=== PATIENT | female | born 1995 | race Two or more races ===

== ENCOUNTER 2017-05-18 11:35 | Emergency (ER) | payer OTHER ==
[~2017-05-18] VITALS: Ht 149.9 cm; Wt 53.5 kg
[~2017-05-18 11:35] MED LIST: AMOX1TAB12 PO; BACTRIM DS TABL1 TAB PO; DICY10CA PO; KETO10TA2 PO; MEDROLPACK PO; MUCINEX1200 MG PO; NEXIUM10 MG PO; PROTONIX40 MG; ZANTAC 7575 MG PO; ZANTAC150 M3 PO; ZANTAC150 MG PO
== END 2017-05-18 16:12 | disposition home or self-care (01) ==
LOC: ER 11:35
DX: B34.9 Viral infection, unspecified (principal)

== ENCOUNTER 2018-06-08 23:30 | Emergency (ER) | payer OTHER ==
[~2018-06-08] VITALS: Ht 149.9 cm; Wt 54.4 kg
[2018-06-09] MEDS ORDERED: MACROBID 100 M100 MG PO (04:30)
== END 2018-06-09 04:44 | disposition home or self-care (01) ==
LOC: ER 23:30
DX: N39.0 Urinary tract infection, site not specified (principal); R10.31 Right lower quadrant pain

== ENCOUNTER → 2018-08-24 | Outpatient (CLI) | payer OTHER ==
[~2018-08-24] MED LIST changes: +MACROBID 100 M100 MG PO
== END | disposition home or self-care (01) ==
LOC: PRENATAL 08:00
DX: O28.3 Abnormal ultrasonic finding on antenatal screening of mother (principal); Z36 Encounter for antenatal screening of mother

== ENCOUNTER 2018-09-22 10:28 | Emergency (ER) | payer OTHER ==
[~2018-09-22] VITALS: Ht 149.9 cm; Wt 69.9 kg
== END 2018-09-22 14:13 | disposition home or self-care (01) ==
LOC: ER 10:28
DX: O26.892 Other specified pregnancy related conditions, second trimester (principal); J22 Unspecified acute lower respiratory infection; Z34.02 Encounter for supervision of normal first pregnancy, second trimester

== ENCOUNTER → 2018-09-22 | Emergency (ER) | payer OTHER ==
[~2018-09-22] VITALS: Ht 149.9 cm; Wt 69.9 kg
== END | disposition left against medical advice (07) ==
LOC: ER 07:24
DX: Z53.20 Procedure and treatment not carried out because of patient's decision for unspecified reasons (principal)

== ENCOUNTER 2019-01-03 15:00 | Inpatient (IN) | payer OTHER ==
[~2019-01-03] VITALS: Ht 149.9 cm; Wt 81.6 kg
[2019-01-21] MEDS ORDERED: MAXFE CAPLET1 EACH PO (13:44)
[2019-01-21] MEDS ORDERED: ACETAMINOPHEN325 M1 PO (13:44)
== END 2019-01-21 16:31 | disposition home or self-care (01) | DRG 807 ==
LOC: OB/GYN 01-18 15:00 → LDR 01-19 05:15 → OB/GYN 01-19 14:58
PROVIDERS: ADMIT Specialist
PROC: 10E0XZZ Delivery of Products of Conception, External Approach (ICD-10-PCS; principal; 2019-01-19)
PROC: 0W8NXZZ Division of Female Perineum, External Approach (ICD-10-PCS; 2019-01-19)
PROC: 4A1HXCZ Monitoring of Products of Conception, Cardiac Rate, External Approach (ICD-10-PCS; 2019-01-19)
DX: O80 Encounter for full-term uncomplicated delivery (principal); Z37.0 Single live birth; Z3A.40 40 weeks gestation of pregnancy

== ENCOUNTER 2019-01-14 01:14 | Outpatient (CLI) | payer OTHER | END 2019-01-14 10:35 | disposition home or self-care (01) | LOC: OBS/DEL 01:14 | DX: O26.893 Other specified pregnancy related conditions, third trimester (principal); K52.89 Other specified noninfective gastroenteritis and colitis ==

== ENCOUNTER 2020-07-09 13:20 | Emergency (ER) | payer OTHER ==
[~2020-07-09] VITALS: Ht 154.9 cm; Wt 59.4 kg
[~2020-07-09 13:20] MED LIST changes: +ACETAMINOPHEN325 M1 PO; +MAXFE CAPLET1 EACH PO
[2020-07-09] MEDS ORDERED: LEVOFLOXACIN750 MG PO (15:54)
[2020-07-09] MEDS ORDERED: IBU600 MG PO (15:54)
== END 2020-07-09 16:00 | disposition home or self-care (01) ==
LOC: ER 13:20
DX: J35.01 Chronic tonsillitis (principal)

== ENCOUNTER 2022-08-13 12:03 | Emergency (ER) | payer OTHER ==
[~2022-08-13] VITALS: Ht 149.9 cm; Wt 65.3 kg
[~2022-08-13 12:03] MED LIST changes: +IBU600 MG PO; +LEVOFLOXACIN750 MG PO
== END 2022-08-13 15:11 | disposition left against medical advice (07) ==
LOC: ER 12:03
DX: O20.8 Other hemorrhage in early pregnancy (principal); Z3A.01 Less than 8 weeks gestation of pregnancy; Z88.8 Allergy status to other drugs, medicaments and biological substances

== ENCOUNTER 2022-08-22 14:43 | Emergency (ER) | payer OTHER ==
[~2022-08-22] VITALS: Ht 149.9 cm; Wt 66.2 kg
== END 2022-08-22 20:09 | disposition home or self-care (01) ==
LOC: ER 14:43
DX: K29.00 Acute gastritis without bleeding (principal); Z88.8 Allergy status to other drugs, medicaments and biological substances

== ENCOUNTER 2023-01-04 14:23 | Inpatient (IN) | payer OTHER ==
[~2023-01-04] VITALS: Ht 149.9 cm; Wt 55.8 kg
[2023-01-04 16:44] LABS: PH,URINE 6.5 (5.0-8.0); URINE APPEARANCE Clear; URINE BILIRRUBIN Negative (NEGATIVE); URINE BLOOD Small; URINE COLOR Yellow; URINE GLUCOSE Negative (NEGATIVE); URINE LEUKOCYTE Negative; URINE NITRATE Negative; URINE PROTEIN Negative (NEGATIVE)
[2023-01-04 16:47] LABS: HEMATOCRIT 37.3 % (36.0-45.00); HEMOGLOBIN 12.6 g/dL (12.0-15.00); MEAN CELL VOLUME 84.2 fL (80.00-100.00); MEAN CORPUSCULAR HEMOGLOBIN 28.5 pg (27.00-32.0); MEAN CORPUSCULAR HGB CONC 33.9 g/dl (32.0-36.0); PLATELET COUNT 283 K/uL (150-450); RED BLOOD COUNT 4.43 M/uL (4.00-6.00)
[2023-01-04 16:48] LABS: URINE EPITHELIAL CELLS 53.3 uL (0.0-38.8)
[2023-01-04 17:10] LABS: URINE RBC 1.7 uL (0.0-20.8)
[2023-01-04 17:26] LABS: ALBUMIN 3.7 gm/dL (3.4-5.0); BILIRUBIN TOTAL 0.58 mg/dL (0.3-1.2); CALCIUM 8.5 mg/dL (8.5-10.1); CREATININE SERUM 0.56 mg/dL (0.55-1.02); GFR 131.9; POTASSIUM 3.59 mEq/L (3.5-5.1); TOTAL PROTEIN 7.7 gm/dL (6.4-8.2)
[2023-01-04 23:59] LABS: PARTIAL THROMBOPLASTIN TIME 27.6 SECONDS (22.0-34.0); PROTHROMBIN TIME 10.5 SECONDS (9.0-11.5)
== END 2023-01-06 10:02 | disposition home or self-care (01) | DRG 770 ==
LOC: ER 14:23 → OB/GYN 20:40
PROVIDERS: General Practice; ADMIT Specialist; ATTEND Specialist
PROC: BU4CZZZ Ultrasonography of Uterus and Ovaries (ICD-10-PCS; 2023-01-04)
PROC: 10D17ZZ Extraction of Products of Conception, Retained, Via Natural or Artificial Opening (ICD-10-PCS; principal; 2023-01-05 16:30)
DX: O02.1 Missed abortion (principal); Z3A.09 9 weeks gestation of pregnancy; Z20.822 Contact with and (suspected) exposure to COVID-19

== ENCOUNTER 2023-03-07 00:51 | Emergency (ER) | payer OTHER ==
[~2023-03-07] VITALS: Ht 152.4 cm; Wt 64.9 kg
[2023-03-07 02:34] LABS: HEMATOCRIT 33.7 % (36.0-45.00); HEMOGLOBIN 11.4 g/dL (12.0-15.00); MEAN CELL VOLUME 83.5 fL (80.00-100.00); MEAN CORPUSCULAR HEMOGLOBIN 28.2 pg (27.00-32.0); MEAN CORPUSCULAR HGB CONC 33.8 g/dl (32.0-36.0); PLATELET COUNT 227 K/uL (150-450); RED BLOOD COUNT 4.03 M/uL (4.00-6.00); RED CELL DISTRIBUTION WIDTH 13.7 % (11.5-14.5)
== END 2023-03-07 03:41 | disposition home or self-care (01) ==
LOC: ER 00:52
DX: K52.89 Other specified noninfective gastroenteritis and colitis (principal); Z88.1 Allergy status to other antibiotic agents

== ENCOUNTER 2023-04-25 14:27 | Emergency (ER) | payer OTHER ==
[~2023-04-25] VITALS: Ht 149.9 cm; Wt 62.6 kg
== END 2023-04-25 16:28 | disposition home or self-care (01) ==
LOC: ER 14:27
DX: H10.89 Other conjunctivitis (principal); Z88.8 Allergy status to other drugs, medicaments and biological substances

== ENCOUNTER 2023-10-04 00:03 | Emergency (ER) | payer OTHER ==
[~2023-10-04] VITALS: Ht 149.9 cm; Wt 66.2 kg
[2023-10-04] MEDS ORDERED: ACETAMINOPHEN 500 MG GEL..CAP PO STA (01:28)
[2023-10-04] MEDS ORDERED: ACETAMINOPHEN 500 MG GEL..CAP PO ONE (01:30)
[2023-10-04 02:31] LABS: HEMATOCRIT 34.8 % (36.0-45.00); HEMOGLOBIN 11.7 g/dL (12.0-15.00); MEAN CELL VOLUME 85.8 fL (80.00-100.00); MEAN CORPUSCULAR HEMOGLOBIN 28.8 pg (27.00-32.0); MEAN CORPUSCULAR HGB CONC 33.5 g/dl (32.0-36.0); PLATELET COUNT 249 K/uL (150-450); RED BLOOD COUNT 4.06 M/uL (4.00-6.00); RED CELL DISTRIBUTION WIDTH 13.2 % (11.5-14.5)
[2023-10-04 02:32] LABS: PH,URINE 6.5 (5.0-8.0); URINE APPEARANCE Clear; URINE BILIRRUBIN Negative (NEGATIVE); URINE BLOOD Negative; URINE COLOR Yellow; URINE GLUCOSE Negative (NEGATIVE); URINE LEUKOCYTE Small; URINE NITRATE Negative; URINE PROTEIN Negative (NEGATIVE)
[2023-10-04 02:35] LABS: URINE BACTERIA 2296.9 uL (0.0-1933); URINE EPITHELIAL CELLS 67.9 uL (0.0-38.8); URINE RBC 6.2 uL (0.0-20.8); URINE WBC 39.2 uL (0.0-23.2)
== END 2023-10-04 04:57 | disposition home or self-care (01) ==
LOC: ER 00:04
PROVIDERS: General Practice
DX: O23.41 Unspecified infection of urinary tract in pregnancy, first trimester (principal); Z3A.01 Less than 8 weeks gestation of pregnancy; R10.9 Unspecified abdominal pain; Z88.1 Allergy status to other antibiotic agents

== ENCOUNTER 2023-11-23 15:41 | Emergency (ER) | payer OTHER ==
[~2023-11-23] VITALS: Ht 149.9 cm; Wt 66.2 kg
[2023-11-23] MEDS ORDERED: PRENATABS RX T1 EACH (16:08)
[2023-11-23] MEDS ORDERED: ACETAMINOPHEN 500 MG GEL..CAP PO ONE (17:15)
[2023-11-23] MEDS ORDERED: FAMOTIDINE/PF 20 MG/2 ML VIAL IV ONE (17:15)
[2023-11-23 17:33] LABS: HEMOGLOBIN 11.4 g/dL (12.0-15.00); MEAN CELL VOLUME 86.8 fL (80.00-100.00); MEAN CORPUSCULAR HEMOGLOBIN 29.2 pg (27.00-32.0); MEAN CORPUSCULAR HGB CONC 33.6 g/dl (32.0-36.0); PLATELET COUNT 230 K/uL (150-450); RED BLOOD COUNT 3.92 M/uL (4.00-6.00); RED CELL DISTRIBUTION WIDTH 13.2 % (11.5-14.5)
[2023-11-23 18:03] LABS: ALBUMIN 3.1 gm/dL (3.4-5.0); BILIRUBIN TOTAL 0.26 mg/dL (0.3-1.2); CALCIUM 8.8 mg/dL (8.5-10.1); CREATININE SERUM 0.72 mg/dL (0.55-1.02); GFR 97.91; GLOBULINA 4.1 G/DL (2.4-3.5); POTASSIUM 3.74 mEq/L (3.5-5.1); TOTAL PROTEIN 7.2 gm/dL (6.4-8.2)
[2023-11-23] MEDS ORDERED: PEPCID AC20 MG PO (18:47)
== END 2023-11-23 21:15 | disposition home or self-care (01) ==
LOC: ER 15:41
PROVIDERS: Nurse Practitioner Family
DX: O26.892 Other specified pregnancy related conditions, second trimester (principal); Z3A.14 14 weeks gestation of pregnancy; R10.13 Epigastric pain; R10.11 Right upper quadrant pain; Z88.8 Allergy status to other drugs, medicaments and biological substances

== ENCOUNTER 2024-02-25 01:45 | Emergency (ER) | payer OTHER ==
[~2024-02-25] VITALS: Ht 149.9 cm; Wt 77.6 kg
[~2024-02-25 01:45] MED LIST changes: +PEPCID AC20 MG PO; +PRENATABS RX T1 EACH
[2024-02-25 01:58] VITALS: BP 103/65; O2SAT 98
[2024-02-25] MEDS ORDERED: BISMUTH SUBSALICYLATE 524 MG/30 ML BLIST.PACK PO STA (03:10)
[2024-02-25 03:48] LABS: HEMATOCRIT 32.6 % (36.0-45.00); HEMOGLOBIN 11.2 g/dL (12.0-15.00); MEAN CELL VOLUME 85.4 fL (80.00-100.00); MEAN CORPUSCULAR HEMOGLOBIN 29.4 pg (27.00-32.0); MEAN CORPUSCULAR HGB CONC 34.4 g/dl (32.0-36.0); PLATELET COUNT 194 K/uL (150-450); RED BLOOD COUNT 3.82 M/uL (4.00-6.00); RED CELL DISTRIBUTION WIDTH 13.5 % (11.5-14.5)
== END 2024-02-25 05:17 | disposition home or self-care (01) ==
LOC: ER 01:47
DX: J10.1 Influenza due to other identified influenza virus with other respiratory manifestations (principal); Z20.822 Contact with and (suspected) exposure to COVID-19; Z88.8 Allergy status to other drugs, medicaments and biological substances

== ENCOUNTER → 2024-04-06 08:59 | Outpatient (CLI) | payer OTHER | END | disposition home or self-care (01) | LOC: PRENATAL 08:59 | PROVIDERS: ATTEND Obstetrics & Gynecology Maternal & Fetal Medicine | DX: O44.00 Complete placenta previa NOS or without hemorrhage, unspecified trimester (principal); O36.8199 Decreased fetal movements, unspecified trimester, other fetus; Z3A.33 33 weeks gestation of pregnancy ==

== ENCOUNTER 2024-05-06 13:56 | Outpatient (CLI) | payer OTHER ==
[~2024-05-06] VITALS: Ht 149.9 cm; Wt 81.6 kg
[2024-05-06 13:40] VITALS: BP 107/68
[2024-05-06] MEDS ORDERED: AMPICILLIN SODIUM 2,000 MG VIAL IV ONE (14:15)
[2024-05-06] MEDS ORDERED: ACETAMINOPHEN 500 MG GEL..CAP PO ONE (14:20)
[2024-05-06] MEDS ORDERED: ACETAMINOPHEN 325 MG TABLET PO PRN (14:30)
[2024-05-06 14:37] LABS: PH,URINE 6.5 (5.0-8.0); URINE APPEARANCE Cloudy; URINE BILIRRUBIN Negative (NEGATIVE); URINE BLOOD Moderate; URINE COLOR Yellow; URINE GLUCOSE Negative (NEGATIVE); URINE LEUKOCYTE Trace; URINE NITRATE Negative; URINE PROTEIN Negative (NEGATIVE)
[2024-05-06 14:40] LABS: HEMATOCRIT 31.3 % (36.0-45.00); HEMOGLOBIN 10.6 g/dL (12.0-15.00); MEAN CELL VOLUME 84.1 fL (80.00-100.00); MEAN CORPUSCULAR HEMOGLOBIN 28.6 pg (27.00-32.0); PLATELET COUNT 149 K/uL (150-450); RED BLOOD COUNT 3.72 M/uL (4.00-6.00); RED CELL DISTRIBUTION WIDTH 14.3 % (11.5-14.5); URINE BACTERIA 2035.4 uL (0.0-1933); URINE EPITHELIAL CELLS 79.6 uL (0.0-38.8); URINE RBC 281.6 uL (0.0-20.8); URINE WBC 19.7 uL (0.0-23.2)
[2024-05-06 14:43] LABS: URINE CAST 0.58 uL (0.0-1.40); URINE KETONE 40 (NEGATIVE)
[2024-05-06] MEDS ORDERED: ACETAMINOPHEN 500 MG GEL..CAP PO PRN (14:45)
[2024-05-06] MEDS ORDERED: OSELTAMIVIR PHOSPHATE 75 MG CAPSULE PO ONE (14:49)
[2024-05-06 15:15] LABS: ALBUMIN 2.6 gm/dL (3.4-5.0); BILIRUBIN TOTAL 0.56 mg/dL (0.3-1.2); CALCIUM 8.5 mg/dL (8.5-10.1); CREATININE SERUM 0.41 mg/dL (0.55-1.02); GFR 186.09; GLOBULINA 3.8 G/DL (2.4-3.5); POTASSIUM 3.72 mEq/L (3.5-5.1); TOTAL PROTEIN 6.4 gm/dL (6.4-8.2)
[2024-05-06 15:25] VITALS: BP 113/64; O2SAT 100
[2024-05-06] MEDS ORDERED: AMPICILLIN SODIUM 1,000 MG VIAL IV SCH ×2 (16:00→20:00)
[2024-05-06] MEDS ORDERED: OSELTAMIVIR PHOSPHATE 75 MG CAPSULE PO SCH (17:00)
[2024-05-06 19:09] VITALS: BP 126/77; O2SAT 100
[2024-05-06 23:10] VITALS: BP 104/60
[2024-05-07 04:00] VITALS: BP 96/56
[2024-05-07] MEDS ORDERED: RINGERS SOLUTION,LACTATED 1,000 ML IV SCH (07:15)
[2024-05-07 07:18] VITALS: BP 105/58
[2024-05-07 07:20] VITALS: BP 110/62
[2024-05-07] MEDS ORDERED: OSELTAMIVIR PHO75 MG PO (09:22)
[2024-05-07 10:17] VITALS: BP 105/58
== END 2024-05-07 10:17 | disposition home or self-care (01) ==
LOC: OBS/DEL 13:56
PROVIDERS: ATTEND Specialist
DX: O26.893 Other specified pregnancy related conditions, third trimester (principal); J10.1 Influenza due to other identified influenza virus with other respiratory manifestations; Z3A.37 37 weeks gestation of pregnancy

== ENCOUNTER 2024-05-15 13:00 | Inpatient (IN) | payer OTHER ==
[~2024-05-15] VITALS: Ht 149.9 cm; Wt 82.1 kg
[~2024-05-15 13:00] MED LIST changes: +OSELTAMIVIR PHO75 MG PO
[2024-05-18] VITALS (10 sets, daily range): BP systolic 104–132; BP diastolic 60–80
[2024-05-18] MEDS ORDERED: RINGERS SOLUTION,LACTATED 1,000 ML IV SCH (05:30)
[2024-05-18] MEDS ORDERED: AMPICILLIN SODIUM 2,000 MG VIAL IV STA (05:30)
[2024-05-18] MEDS ORDERED: OXYTOCIN 500 ML IV SCH (07:00)
[2024-05-18 07:04] LABS: URINE APPEARANCE Cloudy; URINE BACTERIA 9336.4 uL (0.0-1933); URINE BILIRRUBIN Negative (NEGATIVE); URINE BLOOD Trace; URINE COLOR Dark Yellow; URINE GLUCOSE Negative (NEGATIVE); URINE KETONE Negative (NEGATIVE); URINE LEUKOCYTE Trace; URINE NITRATE Negative; URINE PROTEIN Trace (NEGATIVE); URINE RBC 30.9 uL (0.0-20.8); URINE WBC 28.1 uL (0.0-23.2)
[2024-05-18 07:24] LABS: URINE CAST 1.17 uL (0.0-1.40); URINE EPITHELIAL CELLS > 201.7 uL (0.0-38.8)
[2024-05-18 07:34] LABS: HEMATOCRIT 33.9 % (36.0-45.00); HEMOGLOBIN 11.6 g/dL (12.0-15.00); MEAN CELL VOLUME 81.8 fL (80.00-100.00); MEAN CORPUSCULAR HGB CONC 34.3 g/dl (32.0-36.0); PLATELET COUNT 235 K/uL (150-450); RED BLOOD COUNT 4.14 M/uL (4.00-6.00); RED CELL DISTRIBUTION WIDTH 14.2 % (11.5-14.5)
[2024-05-18 07:40] LABS: INR < 0.93; PARTIAL THROMBOPLASTIN TIME 24.2 SECONDS (22.0-34.0); PROTHROMBIN TIME 9.8 SECONDS (9.0-11.5)
[2024-05-18 08:06] LABS: ALBUMIN 2.5 gm/dL (3.4-5.0); BILIRUBIN TOTAL 0.61 mg/dL (0.3-1.2); CALCIUM 9.1 mg/dL (8.5-10.1); CREATININE SERUM 0.53 mg/dL (0.55-1.02); GFR 138.38; GLOBULINA 4.1 G/DL (2.4-3.5); POTASSIUM 4.52 mEq/L (3.5-5.1); TOTAL PROTEIN 6.6 gm/dL (6.4-8.2)
[2024-05-18] MEDS ORDERED: AMPICILLIN SODIUM 1,000 MG VIAL IV SCH (09:00)
[2024-05-18] MEDS ORDERED: PRENATABS RX T1 EACH PO (10:44)
[2024-05-18] MEDS ORDERED: MEPERIDINE HCL/PF 50 MG/ML VIAL IV STA (11:00)
[2024-05-18] MEDS ORDERED: PROMETHAZINE HCL 25 MG/ML AMPUL IV STA (11:01)
[2024-05-18] MEDS ORDERED: CHLORHEXIDINE GLUCONATE 120 ML BOTTLE TOP ONE (14:00)
[2024-05-18] MEDS ORDERED: ERYTHROMYCIN BASE OPHT 1GM EACH TUBE OP ONE (14:00)
[2024-05-18] MEDS ORDERED: IBUprofen 800 MG TABLET PO PRN (14:00)
[2024-05-18] MEDS ORDERED: ACETAMINOPHEN 325 MG TABLET PO PRN (14:00)
[2024-05-18] MEDS ORDERED: OXYTOCIN 20 UNITS/1000ML RL PIGGYBAG IV ONE (14:00)
[2024-05-18] MEDS ORDERED: HYDROCORTISONE 2.5% 30 GM TUBE RECTAL SCH (17:00)
[2024-05-18] MEDS ORDERED: BENZOCAINE/MENTHOL 90 ML BOTTLE TOP SCH (17:00)
[2024-05-19 01:53] LABS: HEMATOCRIT 34.3 % (36.0-45.00); MEAN CELL VOLUME 82.1 fL (80.00-100.00); MEAN CORPUSCULAR HGB CONC 32.7 g/dl (32.0-36.0); PLATELET COUNT 234 K/uL (150-450); RED BLOOD COUNT 4.17 M/uL (4.00-6.00); RED CELL DISTRIBUTION WIDTH 14.4 % (11.5-14.5)
[2024-05-19 01:54] LABS: HEMOGLOBIN 11.2 g/dL (12.0-15.00); MEAN CORPUSCULAR HEMOGLOBIN 26.8 pg (27.00-32.0)
[2024-05-19 03:20] VITALS: BP 113/77
[2024-05-19 07:39] VITALS: BP 125/84
[2024-05-19] MEDS ORDERED: CEFAZOLIN SODIUM 1,000 MG VIAL IV ONE (13:30)
[2024-05-19] MEDS ORDERED: MORPHINE SULFATE 4 MG/ML VIAL IV ONE (14:20)
[2024-05-19 18:21] VITALS: BP 118/78
[2024-05-20] VITALS: BP 110/60
[2024-05-20 02:11] LABS: HEMATOCRIT 31.3 % (36.0-45.00); HEMOGLOBIN 10.5 g/dL (12.0-15.00); MEAN CELL VOLUME 83.2 fL (80.00-100.00); MEAN CORPUSCULAR HEMOGLOBIN 27.9 pg (27.00-32.0); MEAN CORPUSCULAR HGB CONC 33.5 g/dl (32.0-36.0); PLATELET COUNT 211 K/uL (150-450); RED BLOOD COUNT 3.76 M/uL (4.00-6.00); RED CELL DISTRIBUTION WIDTH 14.4 % (11.5-14.5)
[2024-05-20 08:01] VITALS: BP 112/72
== END 2024-05-20 14:49 | disposition home or self-care (01) | DRG 798 ==
LOC: LDR 05-18 05:26 → O/R 05-19 10:29 → OB/GYN 05-19 15:47 → LDR 05-22 13:00
PROVIDERS: ADMIT Specialist; ATTEND Specialist
PROC: 10E0XZZ Delivery of Products of Conception, External Approach (ICD-10-PCS; principal; 2024-05-18)
PROC: 4A1HXCZ Monitoring of Products of Conception, Cardiac Rate, External Approach (ICD-10-PCS; 2024-05-18)
PROC: 0UB70ZZ Excision of Bilateral Fallopian Tubes, Open Approach (ICD-10-PCS; 2024-05-19)
DX: O99.824 Streptococcus B carrier state complicating childbirth (principal); Z37.0 Single live birth; Z30.2 Encounter for sterilization; Z3A.39 39 weeks gestation of pregnancy